=== PATIENT | female | born 1995 | race Caucasian/White ===

== ENCOUNTER 2018-11-11 10:55 | Emergency (ER) | payer OTHER ==
[2018-11-11] MEDS ORDERED: Ibuprofen 200 MG TAB ONE (11:49)
[2018-11-11] MEDS ORDERED: Bicillin LA 2.4 MILL.UNITS/4 ML SYRINGE ONE (11:49)
[2018-11-11] MEDS ORDERED: Dexamethasone 4 mg/ml Vial ONE (11:49)
[2018-11-11] MEDS ORDERED: Bicillin LA 1.2 MILLION UNITS/2 ML SYRINGE IM SCH (12:15)
[2018-11-11 12:22] LABS: MONO NEGATIVE CONTROL ZONE White (Negative) (White); MONO POSITIVE CONTROL Pink Line (Positive) (PINK/RED); Mononucleosis NEGATIVE (NEGATIVE)
== END 2018-11-11 13:30 | disposition home or self-care (01) ==
LOC: ERS 10:55
DX: J02.0 Streptococcal pharyngitis (principal)
CPT/HCPCS: 36415; 86308; 87081; 87430; 96372; 99283; J0561; J1100